=== PATIENT | female | born 1985 | race Caucasian/White ===

== ENCOUNTER → 2017-06-18 | Outpatient (CLI) | payer OTHER ==
--- NOTE | 2017-06-18 10:21 | US ---
History: Abdominal pain and chronic viral hepatitis-C. EXAM: DEDICATED LIVER ULTRASOUND EXAMINATION. Technique: Grayscale and Doppler images of the liver performed. Comparison: None available. Findings: The liver demonstrates a normal hepatic echotexture. There is a focal hyperechoic soft tissue lesion seen in the left hepatic lobe of the liver which measures 10 x 7 x 11 mm which could reflect a bonnie ioma or focal fatty infiltration of the liver. This can be followed up sonographically in 3-6 months for assurance & to document stability. No other dominant liver mass lesions are seen. There is no valeri dence for cirrhosis or surrounding ascites. The portal vein is patent with appropriate flow, as are t he hepatic veins and hepatic artery. There is an unremarkable gallbladder. No gallstones are apprecia tyrone. The gallbladder wall is within normal limits. There is no pericholecystic fluid to suggest acute cholecystitis. CBD is normal in size as well, measuring 3 mm. No ascites or other abdominal/hepatobi liary abnormalities are identified. Impression: Focal hyperechoic soft tissue lesion seen in the left hepatic lobe of the liver which wing sures 10 x 7 x 11 mm which could reflect a hemangioma or focal fatty infiltration of the liver. This can be followed up sonographically in 3-6 months for assurance & to document stability. Unremarkable gallbladder. No other abdominal abnormality is seen. Reported By:
== END ==
LOC: RAD 09:28
PROVIDERS: ATTEND Internal Medicine Gastroenterology
DX: B18.2 Chronic viral hepatitis C (principal)
CPT/HCPCS: 76705